=== PATIENT | female | born 1965 | race Caucasian/White ===

== ENCOUNTER 2016-11-12 08:45 | Day surgery (SDC) | payer OTHER ==
[~2016-11-12] VITALS: Ht 154.9 cm; Wt 86.0 kg
[~2016-11-12 08:45] MED LIST: 0.9% Sodium Chloride 1,000 ML IV SCH; CITA40TA13 PO; CYCL5TAB PO; DIPH25CA6 PO; NORE1TAB21 PO; Sodium Chloride LOK Flush 10 mL Syringe IV PRN; fentaNYL-PF 50 mCg/mL 2 mL Inj IVPUSH PRN
[2016-11-12] MEDS ORDERED: LISI-567 PO (09:08)
[2016-11-12 09:09] VITALS: BP 107/67; PULSE 64; RESP 16; O2SAT 97
[2016-11-12 10:10] VITALS: BP 99/55; PULSE 69; RESP 16; O2SAT 97
[2016-11-12 10:20] VITALS: BP 101/55; PULSE 60; RESP 16; O2SAT 98
[2016-11-12 10:30] VITALS: BP 98/58; PULSE 62; RESP 16; O2SAT 99
--- NOTE | 2016-11-13 08:09 | ENDO ---
[address] [address] ENDOSCOPY PROCEDURE PATIENT: BETH DA SILVA : 1965 MR#: [id number] ADMIT: 11/12/2016 JOB ID: [id number] DATE: 11/12/2016 PREOPERATIVE DIAGNOSIS(ES): Family history of colon cancer and colon polyps. POSTOPERATIVE DIAGNOSIS: Normal colonoscopy to cecum. OPERATION: Colonoscopy to cecum. SURGEON: Deepak Ramírez M.D. INDICATIONS: A 51-year-old female, whose mother has a history of colon polyps and grandmother had colon cancer. She is here for her first screening colonoscopy. INCOMPLETE DICTATION: "Dictation ends here."
--- NOTE | 2016-11-13 08:13 | ENDO ---
[address] [address] ENDOSCOPY PROCEDURE PATIENT: BETH DA SILVA : 1965 MR#: [id number] ADMIT: 11/12/2016 JOB ID: [id number] DATE: 11/12/2016 PREOPERATIVE DIAGNOSIS(ES): Family history of colon cancer and colon polyps. POSTOPERATIVE DIAGNOSIS(ES): Normal colonoscopy to cecum (poor prep). OPERATION: Colonoscopy to cecum. SURGEON: Deepak Ramírez M.D. INDICATIONS: A 51-year-old female, whose grandmother had a history of colon cancer and mother colon polyps and she is here for screening colonoscopy. FINDINGS: She had a poor prep. There was actually a large amount of solid stool remaining on the right side of her colon. The scope was advanced beyond the ileocecal valve into the cecum but there was incomplete visualization and it could not be cleared with aggressive irrigation and suctioning. There were a lot of vegetable fibers and semi solid stool on the right side. The scope was then withdrawn over 5 minutes 24 seconds. Retroflexed views of the rectum were obtained. I saw no polyps, but again this is a poor prep. DESCRIPTION OF PROCEDURE: The procedure and sedation plan was discussed with the patient and nursing staff, and a procedural time-out was held. She received 4 mg of Versed and 100 mcg of fentanyl. A digital rectal examination was performed. The Olympus PCF H 180 AL video colonoscope was passed transanally, advanced to the cecum, withdrawn with results as stated above. Again because of her poor prep, there was very poor visualization of the right side of the colon and cecum. No biopsies were taken. There were no apparent complications. IMPRESSION: The scope was advanced to the cecum but because of the poor prep she needs to have a repeat colonoscopy in one year with a two day prep.
== END 2016-11-12 23:59 | disposition home or self-care (01) ==
LOC: END 08:45
PROVIDERS: ATTEND Surgery
PROC: 0DJD8ZZ Inspection of Lower Intestinal Tract, Via Natural or Artificial Opening Endoscopic (ICD-10-PCS; principal; 2016-11-12 09:30)
DX: Z12.11 Encounter for screening for malignant neoplasm of colon (principal); Z80.0 Family history of malignant neoplasm of digestive organs; Z83.71 Family history of colonic polyps
CPT/HCPCS: G0105; G0500; J7030